=== PATIENT | male | born 1980 ===

== ENCOUNTER 2023-06-12 09:43 | Emergency (ER) | payer OTHER ==
[~2023-06-12] VITALS: Ht 177.8 cm; Wt 88.7 kg
[2023-06-12] MEDS ORDERED: TRAZODONE HCL50 MG PO (10:02)
[2023-06-12] MEDS ORDERED: GABAPENTIN300 MG PO (10:02)
[2023-06-12] MEDS ORDERED: ROPINIROLE HCL2 MG PO (10:02)
[2023-06-12] MEDS ORDERED: METHOCARBAMOL500 MG PO (10:03)
[2023-06-12] MEDS ORDERED: CITALOPRAM HBR20 MG PO (10:03)
[2023-06-12] MEDS ORDERED: CLONIDINE HCL0.1 MG PO (10:03)
[2023-06-12] MEDS ORDERED: BUPROPION HCL100 MG PO (10:03)
[2023-06-12 11:52] LABS: BASOPHILS 0.4 % (0-2); EOSINOPHILS 0.1 % (0-6); HEMATOCRIT 42.7 % (35.0-50.0); HEMOGLOBIN 14.8 g/dL (12.0-18.0); LYMPHOCYTES 19.5 % (24-44); MCH 31.7 (27-36); MCHC 34.7 g/dl (30-36); MCV 91.3 fl (81-99); MONOCYTES 6.6 % (0-12); NEUTROPHILS 73.4 % (39-80); PLATELET COUNT 540 K/uL (140-440); RBC 4.68 M/ul (4.3-5.7); RDW 12.8 (10.5-15.0)
[2023-06-12 12:06] LABS: ALBUMIN 2.7 g/dL (3.4-5.0); ALBUMIN/GLOBULIN RATIO 0.48 (1.1-2.4); BILIRUBIN, TOTAL 0.5 ng/dL (0.2-1.0); BUN/CREATININE RATIO 6.02 (6.0-28.6); CALCIUM 9.6 mg/dL (8.5-10.1); CREATININE, SERUM 0.83 mg/dL (0.70-1.30); PROTEIN, TOTAL 8.3 g/dL (6.4-8.2)
[2023-06-12 12:11] LABS: AMPHETAMINES, URINE NEGATIVE (NEGATIVE); BARBITURATES, URINE NEGATIVE (NEGATIVE); BENZODIAZEPINE, URINE NEGATIVE (NEGATIVE); BUPRENORPHINE, URINE NEGATIVE (NEGATIVE); CANNABINOID, URINE POSITIVE (NEGATIVE); COCAINE, URINE NEGATIVE (NEGATIVE); ECSTASY, URINE POSITIVE (NEGATIVE); FENTANYL, URINE NEGATIVE (NEGATIVE); METHADONE, URINE NEGATIVE (NEGATIVE); OPIATES, URINE NEGATIVE (NEGATIVE); OXYCODONE, URINE NEGATIVE (NEGATIVE); PHENCYCLIDINE, URINE NEGATIVE (NEGATIVE)
== END 2023-06-12 14:05 | disposition home or self-care (01) ==
LOC: ED 09:43
PROVIDERS: Emergency Medicine
DX: Z02.89 Encounter for other administrative examinations (principal); Z04.1 Encounter for examination and observation following transport accident; F10.129 Alcohol abuse with intoxication, unspecified; E87.20 Acidosis, unspecified; R00.0 Tachycardia, unspecified; R03.0 Elevated blood-pressure reading, without diagnosis of hypertension; Z79.899 Other long term (current) drug therapy
CPT/HCPCS: 36415; 80053; 80307; 83690; 85025; A9270; A9270-GY; G0480; J2060; J2405; J7030